=== PATIENT | female | born 1995 | race Caucasian/White ===

== ENCOUNTER 2021-06-15 17:15 | Emergency (ER) | payer OTHER ==
[~2021-06-15 17:15] MED LIST: MACROBID 100 M100 MG PO
[2021-06-15 18:24] LABS: HEMOGLOBIN 13.3 gm/dl (12.3-15.3); RED BLOOD COUNT 4.91 M/UL (4.00-5.10); WHITE BLOOD COUNT 14.8 K/UL (4.5-11.0)
[2021-06-15 18:45] LABS: BUN/CREATININE RATIO 26 (0-10)
[2021-06-15] MEDS ORDERED: ZOFRAN ODT 4 MG4 MG SL (23:02)
[2021-06-15] MEDS ORDERED: PROTONIX40 MG PO (23:02)
[2021-06-15] MEDS ORDERED: BENTYL 10MG CAP10 MG PO (23:02)
== END 2021-06-15 23:21 | disposition home or self-care (01) ==
LOC: ER1 17:15
PROVIDERS: Physician Assistant
DX: R10.13 Epigastric pain (principal); R11.2 Nausea with vomiting, unspecified; E11.9 Type 2 diabetes mellitus without complications; I10 Essential (primary) hypertension; F17.210 Nicotine dependence, cigarettes, uncomplicated
CPT/HCPCS: 80053; 81001; 83690; 84703; 85025; 99284; Q9967